=== PATIENT | female | born 1955 | race Caucasian/White ===

== ENCOUNTER 2016-09-19 08:35 | Day surgery (SDC) | payer OTHER ==
--- NOTE | ~2016-09-19 | EGD ---
EGD REPORT [facility] [address] [id number] NAME: FELISA CHESTER : 55 STATUS : REG [facility]#: [id number] AGE: 61 ADM/REG DATE : 09/19/16 MR#: [id number] REPORT SERV DATE: 09/19/16 DICTATED BY: RACHEL ALLEN DATE: 09/19/16 REPORT STATUS : Draft TRANSCRIBED BY: [employer] DATE: 09/19/16 [facility] Patient Name: Felisa Chester Date of : 1955 Attending MD: RACHEL ALLEN MD Procedure Date No Time: 09/19/2016 Procedure: Colonoscopy Indications: Screening in patient at increased risk: Colorectal cancer in father 60 or older Referring MD: AMILCAR KING Medicines: Monitored Anesthesia Care Complications: No immediate complications. Procedure: Pre-Anesthesia Assessment: - ASA Grade Assessment: III - A patient with severe systemic disease. After I obtained informed consent, the scope was passed under direct vision. Throughout the procedure, the patient's blood pressure, pulse, and oxygen saturations were monitored continuously. The CF [id number] was introduced through the anus and advanced to the cecum, identified by appendiceal orifice and ileocecal valve. The colonoscopy was performed without difficulty. The patient tolerated the procedure well. The quality of the bowel preparation was adequate. Findings: The digital rectal exam was normal. Pertinent negatives include no palpable rectal lesions. Multiple diverticula were found in the sigmoid colon. Hemorrhoids were found during retroflexion. A sessile polyp was found in the ascending colon. The polyp was 6 mm in size. The polyp was removed with a cold snare. Resection and retrieval were complete. Four sessile polyps were found in the sigmoid colon. The polyps were 3 to 5 mm in size. These polyps were removed with a cold biopsy forceps. Resection and retrieval were complete. Three pedunculated polyps were found in the rectum. The polyps were 7 to 8 mm in size. These polyps were removed with a cold snare. Resection and retrieval were complete. Impression: - Diverticulosis in the sigmoid colon. - Hemorrhoids. - One 6 mm polyp in the ascending colon. Resected and retrieved. - Multiple polyps. EGD REPORT [address] [address] NAME: FELISA CHESTER : 55 STATUS : [place] [facility] [place]#: [id number] AGE: 61 ADM/REG DATE : 09/19/16 MR#: [id number] REPORT SERV DATE: 09/19/16 DICTATED BY: RACHEL ALLEN DATE: 09/19/16 REPORT STATUS : Draft TRANSCRIBED BY: [employer] DATE: 09/19/16 - Three 7 to 8 mm polyps in the rectum. Resected and retrieved. Recommendation: - Patient has a contact number available for emergencies. The signs and symptoms of potential delayed complications were discussed with the patient. Return to normal activities tomorrow. Written discharge instructions were provided to the patient. - Regular diet. - Continue present medications. - Continue present medications. - Repeat colonoscopy in 3 - 5 years for surveillance based on pathology results. - Return to GI clinic PRN. Procedure Code(s): --- Professional --- 97649, Colonoscopy, flexible, proximal to splenic flexure; with removal of tumor(s), polyp(s), or other lesion(s) by snare technique Diagnosis Code(s): --- Professional --- K64.9, Unspecified hemorrhoids K57.30, Diverticulosis of large intestine without perforation or abscess without bleeding K62.1, Rectal polyp D12.6, Benign neoplasm of colon, unspecified D12.2, Benign neoplasm of ascending colon Z12.11, Encounter for screening for malignant neoplasm of colon Z80.0, Family history of malignant neoplasm of digestive organs CPT copyright 2013 [employer]. All rights reserved. The codes documented in this report are preliminary and upon shop technician review may be revised to meet current compliance requirements. RACHEL ALLEN MD 09/19/2016 10:03 AM This report has been signed electronically. Number of Addenda: 0 Note Initiated On: 09/19/2016 9:33 AM Scope Withdrawal Time 0 hours 19 minutes 48 [address] [facility] [address] [id number] NAME: FELISA CHESTER : 55 STATUS : [place] [facility] [place]#: [id number] AGE: 61 ADM/REG DATE : 09/19/16 MR#: [id number] REPORT SERV DATE: 09/19/16 DICTATED BY: RACHEL ALLEN DATE: 09/19/16 REPORT STATUS : Draft TRANSCRIBED BY: [employer] DATE: 09/19/16 [address] [id number]
[~2016-09-19 08:35] MED LIST: AMARYL1 MG PO; AMARYL2 PO; AVANDIA2 PO; HUMALOG SC; LANTUSCART SC; MIRAPEX5 PO; MOBIC7.5 PO; PROAIR HFA INH; SYNTHROID175 MCG PO; ZOL50 PO
== END 2016-09-19 23:59 | disposition home health service (06) ==
LOC: DMU 08:35
PROVIDERS: Internal Medicine Gastroenterology
PROC: 0DBN8ZX Excision of Sigmoid Colon, Via Natural or Artificial Opening Endoscopic, Diagnostic (ICD-10-PCS; 2016-09-19)
PROC: 0DBK8ZZ Excision of Ascending Colon, Via Natural or Artificial Opening Endoscopic (ICD-10-PCS; principal; 2016-09-19 09:30)
PROC: 0DBP8ZZ Excision of Rectum, Via Natural or Artificial Opening Endoscopic (ICD-10-PCS; 2016-09-19 09:30)
DX: Z12.11 Encounter for screening for malignant neoplasm of colon (principal); D12.2 Benign neoplasm of ascending colon; K57.30 Diverticulosis of large intestine without perforation or abscess without bleeding; K63.5 Polyp of colon; K62.1 Rectal polyp; K64.9 Unspecified hemorrhoids; E66.01 Morbid (severe) obesity due to excess calories; J45.909 Unspecified asthma, uncomplicated; G47.33 Obstructive sleep apnea (adult) (pediatric); E11.9 Type 2 diabetes mellitus without complications; E03.9 Hypothyroidism, unspecified; K21.9 Gastro-esophageal reflux disease without esophagitis; Z80.0 Family history of malignant neoplasm of digestive organs; Z88.2 Allergy status to sulfonamides; Z79.4 Long term (current) use of insulin; Z79.899 Other long term (current) drug therapy; F41.9 Anxiety disorder, unspecified; F32.9 Major depressive disorder, single episode, unspecified; Z90.710 Acquired absence of both cervix and uterus; Z90.49 Acquired absence of other specified parts of digestive tract; Z98.890 Other specified postprocedural states; Z87.891 Personal history of nicotine dependence
CPT/HCPCS: 82962; 88305